=== PATIENT | female | born 1995 | race Two or more races ===

== ENCOUNTER 2018-06-30 05:12 | Emergency (ER) | payer OTHER ==
[~2018-06-30] VITALS: Ht 147.3 cm; Wt 66.8 kg
[2018-06-30 05:15] VITALS: BP 130/73
--- NOTE | 2018-06-30 05:37 | NUR ---
dr. moya talking with pt. he has spoken with obgyn at [facility]. Pt offered to have us transfer her via ems to [facility] or if she feels comfortable, to drive to [facility]. Pt and choosing to DC and drive to [facility].
--- NOTE | 2018-06-30 05:49 | NUR ---
REPORT GIVEN TO RN, RANULFO, [facility].
[2018-06-30 06:23] LABS: BASOPHILS # (AUTO) 0.1 X10'3 (0-0.2); BASOPHILS % (AUTO) 0.7 % (0-1); EOSINOPHILS % (AUTO) 0.4 % (0-6); HEMATOCRIT 35.9 % (35.0-45.0); LYMPHOCYTES # (AUTO) 3.2 X10'3 (1.1-4.8); LYMPHOCYTES % (AUTO) 43.4 % (21-51); MEAN CORPUSCULAR HEMOGLOBIN 27.2 PG (27.0-31.0); MEAN CORPUSCULAR HGB CONC 33.4 g/dL (33.0-36.5); MEAN CORPUSCULAR VOLUME 81.5 FL (78-98); MEAN PLATELET VOLUME 9.9 FL (7.4-10.4); MONOCYTES # (AUTO) 0.6 X10'3 (0-0.9); MONOCYTES % (AUTO) 7.8 % (2-12); NEUTROPHILS # (AUTO) 3.5 X10'3 (1.8-7.7); NEUTROPHILS % (AUTO) 47.7 % (42-75); PLATELET COUNT 229 X10'3 (140-440); WHITE BLOOD COUNT 7.3 X10'3 (4.5-11.0)
[2018-06-30 06:35] LABS: ALANINE AMINOTRANSFERASE 19 U/L (12-78); ALBUMIN 2.5 G/DL (3.4-5.0); ALBUMIN/GLOBULIN RATIO 0.6 (1.1-1.5); ALKALINE PHOSPHATASE 192 IU/L (46-116); ANION GAP 14 (8-16); ASPARTATE AMINO TRANSFERASE 22 U/L (10-37); BILIRUBIN,TOTAL 0.4 MG/DL (0.1-1.0); BLOOD UREA NITROGEN 15 MG/DL (7-18); BUN/CREATININE RATIO 30.6 (6.6-38.0); CALCIUM 9.3 MG/DL (8.5-10.1); CHLORIDE 104 MMOL/L (99-107); CREATININE 0.49 MG/DL (0.40-0.90); GLUCOSE 75 MG/DL (70-104); POTASSIUM 4.3 MMOL/L (3.5-5.1); SODIUM 137 MMOL/L (135-145); TOTAL CARBON DIOXIDE 19.3 MMOL/L (24-32); TOTAL PROTEIN 6.7 G/DL (6.4-8.2); eGFR > 90 ML/MIN
== END 2018-06-30 05:30 | disposition short-term general hospital (02) ==
LOC: ER 05:12
DX: O75.89 Other specified complications of labor and delivery (principal); Z3A.41 41 weeks gestation of pregnancy
CPT/HCPCS: 36415; 80053; 82948; 85025; 99283